=== PATIENT | male | born 1980 | race Caucasian/White ===

== ENCOUNTER → 2020-01-21 | Outpatient (CLI) | payer BC ==
[~2020-01-21] VITALS: Ht 170.2 cm; Wt 70.5 kg
[~2020-01-21] MED LIST: ACHD5005 PO; CEPH500C PO; GADOBUTROL 7.5 MMOL/7.5 ML (GADAVIST) VIAL IV ONE; HOLD METFORMIN - RECEIVED CONTRAST 20 ML VIAL IV SCH; IBUP-16 PO; IOHEXOL 300 MG/ML 50 ML (OMNIPAQUE 300) VIAL IV ONE; LIDOCAINE 1% INJ 20 ML 20 ML VIAL INJ ONE; NS 100 ML (IVPB) BAG IV ONE; PRD20T PO; TRM50T PO
--- NOTE | 2020-01-21 15:29 | Diagnostic Imaging Report ---
INDICATION: Right shoulder pain. Patient was brought to the procedure room and placed on table in the supine position. Skin of the right shoulder was prepped and draped in usual sterile fashion. A small amount of 1% lidocaine was utilized for local anesthesia. A 22-gauge needle was advanced to right shoulder, placed with its tip at the rotator interval. A 15 mm solution of iodinated contrast, normal saline and gadolinium was injected under fluoroscopic observation. Total of 19 seconds of fluoroscopic time was utilized. Single image was obtained. Needle was removed and hemostasis was obtained. Patient tolerated procedure well, was sent to MRI in satisfactory condition. IMPRESSION: Successful fluoroscopically assisted right shoulder injection for MRI. Dictated by: Dictated on workstation # [id number]
--- NOTE | 2020-01-22 12:00 | Diagnostic Imaging Report ---
PROCEDURE: MRI upper extremity any joint with contrast right. TECHNIQUE: Multiplanar, multisequence contrast-enhanced MRI of the right upper extremity was accomplished. INDICATION: Right shoulder pain, no specific injuries, prior surgery x3 EXAMINATION: Right shoulder MRI 01/21/2020 FINDINGS: The subscapularis tendon is intact. The long head of the biceps tendon is not seen within the bicipital groove. It is likely torn and retracted age indeterminant. The supraspinatus and infraspinatus tendons are intact. Once again seen is abnormal signal intensity along the superior labrum. It appears more pronounced than on the previous MRI dated 05/26/2015. It could be due to a worsening tear. Correlate with patient's symptoms. Changes at the acromion clavicular joint likely due to interval surgery. Previously noted narrowing at the joint space appears now widening perhaps due to osteotomy. Correlate with surgical history. Adjacent irregularity within the soft tissues likely chronic scarring. A few foci of adjacent cysts susceptibility artifact consistent with postoperative change. No acute osseous abnormalities appreciated. Muscle volume is preserved. Visualized axilla is unremarkable. IMPRESSION: 1. No evidence for a rotator cuff tear. 2. Abnormality along the superior labrum appears more pronounced than on previous imaging perhaps due to a worsening tear. 3. Non-visualization of the long head biceps tendon as noted above. Dictated by: Dictated on workstation # [id number]
== END ==
LOC: RAD 13:30
PROVIDERS: ATTEND Orthopaedic Surgery
DX: S46.011A Strain of muscle(s) and tendon(s) of the rotator cuff of right shoulder, initial encounter (principal); Z98.890 Other specified postprocedural states
CPT/HCPCS: 23350; 73040; 73222

== ENCOUNTER 2022-05-16 05:02 | Emergency (ER) | payer BC ==
[~2022-05-16] VITALS: Ht 167.7 cm; Wt 72.5 kg
[~2022-05-16 05:02] MED LIST changes: -GADOBUTROL 7.5 MMOL/7.5 ML (GADAVIST) VIAL IV ONE; -HOLD METFORMIN - RECEIVED CONTRAST 20 ML VIAL IV SCH; -IOHEXOL 300 MG/ML 50 ML (OMNIPAQUE 300) VIAL IV ONE; -LIDOCAINE 1% INJ 20 ML 20 ML VIAL INJ ONE; -NS 100 ML (IVPB) BAG IV ONE
--- NOTE | 2022-05-16 05:21 | ED General ---
General Chief Complaint: Chest Wall Stated Complaint: HURTS ON LEFT UPPER SIDE Source of Information: Patient Exam Limitations: No Limitations (BERE ASHLEY MD) History of Present Illness Date Seen by Provider: May 16, 2022 Time Seen by Provider: 05:21 Initial Comments Patient is a 41-year-old male who smokes, history of hypertension presents to the emergency room with a chief complaint of left-sided chest pain. Patient states he was sitting out in his garage drinking a beer when he had a sudden onset of pain in the left lateral chest. He states taking a deep breath makes the pain worse. Exertion, walking in from the car did not seem to make it any worse. Nothing makes it any better. He did not take any medication for the pain. He describes it as a "pressure" type of pain in the left lateral chest just lateral to the left nipple. He states he has not had any of his antihypertensive medications in a couple of months. 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 No swelling in his legs or cramping in his calves. No recent illnesses such as upper respiratory congestion, cough or shortness of breath. He is not nauseated. Did not get sweaty at the onset of pain. Has never had a pain like this before. All other review of systems reviewed and negative except as stated. Timing/Duration: 1/2 Hour Severity: Moderate ("5 or 6") Associated Systoms: Shortness of Air (BERE ASHLEY MD) Allergies and Home Medications Allergies Coded Allergies: No Known Drug Allergies (Unverified , 07/12/11) Patient Home Medication List Home Medication List Reviewed: Yes (BERE ASHLEY MD) Ibuprofen (Motrin Ib) 200 Mg Tablet, 800 MG PO UD, (Reported) Entered as Reported by: PEG CARO on 03/28/15 9679 Review of Systems Review of Systems Constitutional: see HPI EENTM: no symptoms reported Respiratory: short of breath Cardiovascular: chest pain Gastrointestinal: no symptoms reported Genitourinary: no symptoms reported Musculoskeletal: no symptoms reported Skin: no symptoms reported (BERE ASHLEY MD) All Other Systems Reviewed Negative Unless Noted: Yes (BERE ASHLEY MD) Past Mrjnxfv-Edlymr-Ksjtjq Hx Seasonal Allergies Seasonal Allergies: No (BERE ASHLEY MD) Past Medical History Orthopedic Reproductive Disorders: No Sexually Transmitted Disease: No Fractures Adverse Reaction/Blood Tranf: No (BERE ASHLEY MD) Physical Exam Vital Signs Vital Signs - First Documented 05/16/22 05:10 Temp 36.0 Pulse 88 Resp 16 B/P (MAP) 164/109 (127) (KEVINNEYDA [place] Ursula CORREIA) Vital Signs Capillary Refill : (BERE ASHLEY MD) Height, Weight, BMI Height: 5'8" Weight: 180lbs. oz. 81.068949kl; 24.33 BMI Method:Stated General Appearance: No Apparent Distress, WD/WN, Thin Eyes: Bilateral Eye Normal Inspection, Bilateral Eye PERRL, Bilateral Eye EOMI HEENT: PERRL/EOMI Neck: Normal Inspection Respiratory: Lungs Clear, Normal Breath Sounds, No Accessory Muscle Use, No Respiratory Distress Cardiovascular: Regular Rate, Rhythm, Normal Peripheral Pulses Gastrointestinal: Normal Bowel Sounds, Non Tender, Soft Extremity: Normal Capillary Refill, Normal Inspection, Normal Range of Motion, Non Tender, No Calf Tenderness, No Pedal Edema Neurologic/Psychiatric: Alert, Oriented x3, No Motor/Sensory Deficits, Normal 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/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, 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 Norm as Tested Skin: Normal Color, Warm/Dry (BERE ASHLEY MD) Progress/Results/Core Measures Suspected Sepsis SIRS Temperature: Pulse: Respiratory Rate: Blood Pressure / Mean: (BERE ASHLEY MD) Results/Orders Lab Results Laboratory Tests Test 05/16/22 05:55 Range/Units White Blood Count 6.2 4.3-11.0 10^3/uL Red Blood Count 4.83 4.30-5.52 10^6/uL Hemoglobin 14.8 13.3-17.7 g/dL Hematocrit 42 40-54 % Mean Corpuscular Volume 87 80-99 fL Mean Corpuscular Hemoglobin 31 25-34 pg Mean Corpuscular Hemoglobin Concent 35 32-36 g/dL Red Cell Distribution Width 12.7 10.0-14.5 % Platelet Count 207 130-400 10^3/uL Mean Platelet Volume 10.0 9.0-12.2 fL Immature Granulocyte % (Auto) 0 % Neutrophils (%) (Auto) 56 42-75 % Lymphocytes (%) (Auto) 29 12-44 % Monocytes (%) (Auto) 11 0-12 % Eosinophils (%) (Auto) 3 0-10 % Basophils (%) (Auto) 1 0-10 % Neutrophils # (Auto) 3.5 1.8-7.8 10^3/uL Lymphocytes # (Auto) 1.8 1.0-4.0 10^3/uL Monocytes # (Auto) 0.7 0.0-1.0 10^3/uL Eosinophils # (Auto) 0.2 0.0-0.3 10^3/uL Basophils # (Auto) 0.0 0.0-0.1 10^3/uL Immature Granulocyte # (Auto) 0.0 0.0-0.1 10^3/uL Prothrombin Time 12.2 12.2-14.7 SEC INR Comment 0.9 0.8-1.4 Activated Partial Thromboplast Time 28 24-35 SEC Sodium Level 132 L 135-145 MMOL/L Potassium Level 3.9 3.6-5.0 MMOL/L Chloride Level 97 L 98-107 MMOL/L Carbon Dioxide Level 23 21-32 MMOL/L Anion Gap 12 5-14 MMOL/L Blood Urea Nitrogen 8 7-18 MG/DL Creatinine 0.72 0.60-1.30 MG/DL Estimat Glomerular Filtration Rate 118 BUN/Creatinine Ratio 11 Glucose Level 84 70-105 MG/DL Calcium Level 8.6 8.5-10.1 MG/DL Corrected Calcium 8.4 L 8.5-10.1 MG/DL Magnesium Level 1.7 1.6-2.4 MG/DL Total Bilirubin 0.2 0.1-1.0 MG/DL Aspartate Amino Transf (AST/SGOT) 20 5-34 U/L Alanine Aminotransferase (ALT/SGPT) 8 0-55 U/L Alkaline Phosphatase 101 40-136 U/L Myoglobin 30.0 10.0-92.0 NG/ML Troponin I < 0.028 <0.028 NG/ML Total Protein 7.6 6.4-8.2 GM/DL Albumin 4.3 3.2-4.5 GM/DL (NEYDA BROWN DO) Medications Given in ED Current Medications Medications Dose Ordered Sig/Mckenzie Route Start Time Stop Time Status Last Admin Dose Admin Aspirin 324 mg ONCE ONCE PO 05/16/22 05:30 05/16/22 05:31 DC 05/16/22 05:57 324 MG (NEYDA BROWN DO) Vital Signs/I&O 05/16/22 05:10 Temp 36.0 Pulse 88 Resp 16 B/P (MAP) 164/109 (127) (NEYDA BROWN DO) Vital Signs/I&O Capillary Refill : (BERE ASHLEY MD) ECG Initial ECG Impression Date: May 16, 2022 Initial ECG Impression Time: 05:25 Initial ECG Rate: 85 Initial ECG Rhythm: Normal Sinus Initial ECG Intervals: Normal Initial ECG Intervals KS 152 QRS [address] elevation or depression; no ectopy (BERE ASHLEY MD) Departure Communication (Admissions) Patient is hemodynamically stable. Heart score is 2, 1 for story and 1 for risk factors. Overall low risk for major cardiac event in the next 30 days. He has reliable follow-up with his primary doctor. He has been noncompliant with his blood pressure medicines we did recommend that he continue to take these at home. He already has a prescription, just needs to pick it up. His pain Is resolved at time of discharge. Chest x-ray is negative, no indication of pulmonary etiology. No evidence for aortic dissection, pulmonary embolism. He is discharged in stable condition with supportive care after questions were sought and answered. (NEYDA BROWN DO) Impression Primary Impression: Atypical chest pain Disposition: 01 HOME, SELF-CARE Condition: Stable Departure-Patient Inst. Referrals: [facility] (PCP/Family) Primary Care Physician Patient Instructions: Chest Pain Add. Discharge Instructions: Evaluation of your heart and lungs is reassuring. Your exam and vital signs are also reassuring. Overall he has a low risk of this being an emergent heart condition or lung condition. With that I still recommend you follow-up with your primary doctor in the next week for further evaluation and treatment recommendations. 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 Return to the emergency department should your symptoms change in any way concerning to you, specifically if he has severe pain, shortness of breath, eating, sweaty or clammy. All discharge instructions reviewed with patient and/or family. Voiced understanding. BERE ASHLEY MD May 16, 2022 05:21 NEYDA BROWN DO May 16, 2022 06:52
[2022-05-16] MEDS ORDERED: ASPIRIN 81 MG CHEW (CHILDREN'S ASA) PO ONE (05:30)
[2022-05-16 06:10] LABS: BASOPHILS % (AUTO) 1 % (0-10); EOSINOPHILS # (AUTO) 0.2 10^3/uL (0.0-0.3); EOSINOPHILS % (AUTO) 3 % (0-10); HEMATOCRIT 42 % (40-54); HEMOGLOBIN 14.8 g/dL (13.3-17.7); LYMPHOCYTES # (AUTO) 1.8 10^3/uL (1.0-4.0); LYMPHOCYTES % (AUTO) 29 % (12-44); MEAN CORPUSCULAR HEMOGLOBIN 31 pg (25-34); MEAN CORPUSCULAR HGB CONC 35 g/dL (32-36); MEAN CORPUSCULAR VOLUME 87 fL (80-99); MONOCYTES # (AUTO) 0.7 10^3/uL (0.0-1.0); MONOCYTES % (AUTO) 11 % (0-12); NEUTROPHILS # (AUTO) 3.5 10^3/uL (1.8-7.8); NEUTROPHILS % (AUTO) 56 % (42-75); PLATELET COUNT 207 10^3/uL (130-400); WHITE BLOOD COUNT 6.2 10^3/uL (4.3-11.0)
[2022-05-16 06:23] LABS: INR 0.9 (0.8-1.4); PROTHROMBIN TIME PATIENT 12.2 SEC (12.2-14.7)
[2022-05-16 06:28] LABS: ALBUMIN 4.3 GM/DL (3.2-4.5); BILIRUBIN,TOTAL 0.2 MG/DL (0.1-1.0); CALCIUM 8.6 MG/DL (8.5-10.1); CREATININE SERUM 0.72 MG/DL (0.60-1.30); MAGNESIUM 1.7 MG/DL (1.6-2.4); POTASSIUM 3.9 MMOL/L (3.6-5.0); TOTAL PROTEIN 7.6 GM/DL (6.4-8.2)
--- NOTE | 2022-05-16 06:52 | Diagnostic Imaging Report ---
EXAMINATION: Chest radiograph, portable AP view. DATE: 05/16/2022 6:12 AM INDICATION: 41-year-old male, chest pain. COMPARISON: None. FINDINGS: Heart size and mediastinal contours are unremarkable. There is no identified pneumothorax. There is no large pleural effusion. There is no identified focal airspace consolidation. There is widening of the right acromioclavicular joint. There are well-corticated areas of ossification adjacent of the distal clavicle on the right compatible with the sequela of remote prior injury. IMPRESSION: 1. No identified acute cardiopulmonary abnormality. 2. Remote prior right acromioclavicular joint separation injury. Dictated by: Dictated on workstation # [id number]
[2022-05-16] MEDS ORDERED: KETOROLAC 15 MG/ML VIAL IVP ONE (07:15)
[2022-05-16 07:30] VITALS: BP 122/86
[2022-05-16] MEDS ORDERED: KETOROLAC 15 MG/ML VIAL IM ONE (07:30)
== END 2022-05-16 07:30 | disposition home or self-care (01) ==
LOC: EDUNIT# 05:02 → ER 05:07
DX: R07.89 Other chest pain (principal); I10 Essential (primary) hypertension; T46.5X6A Underdosing of other antihypertensive drugs, initial encounter; F17.200 Nicotine dependence, unspecified, uncomplicated; Z91.138 Patient's unintentional underdosing of medication regimen for other reason; Z28.310 Unvaccinated for COVID-19
CPT/HCPCS: 36415; 71045; 80053; 83735; 83874; 84484; 85025; 85610; 85730; 93005